=== PATIENT | male | born 1945 | race Asian ===

== ENCOUNTER 2018-02-12 16:04 | Emergency (ER) | payer OTHER ==
--- NOTE | 2018-02-12 17:30 | RAD REPORT ---
EXAM DESCRIPTION: RAD - Foot Right 3 View - 02/12/2018 5:01 pm CLINICAL HISTORY: Plantar puncture wound near the ball of the foot COMPARISON: None. FINDINGS: No fracture, dislocation or periosteal reaction. Minimal degenerative change at the first MTP joint No air or foreign body in the soft tissues. IMPRESSION: No acute bone finding. No foreign body.
--- NOTE | 2018-02-12 18:03 | EDPHYS ---
Physician Documentation [facility] Name: Kan Angulo Age: 72 yrs Sex: Male : 1945 Arrival Date: 02/12/2018 Time: 16:09 Bed 25 Private MD: Harjit Calero T ED Physician Brice Guadalupe HPI: 02/12 17:17 This 72 yrs old Male presents to ER via Ambulatory with complaints of STEPPED ON jmm NAIL. 17:17 The patient presents with puncture injury. Onset: The symptoms/episode began/occurred jm acutely, just prior to arrival. Patient states he stepped on a nail just prior to arrival. Injury occurred through a rubber boot. . 17:17 The complaints affect the right foot. jmm 17:17 Associated signs and symptoms: Pertinent positives: swelling, Pertinent negatives: jmm fever. Historical: - Allergies: 16:25 Aspirin; concerned about bleeding, not a true allergy; ch - Home Meds: 16:25 doxamine [Active]; blood pressure pills [Active]; Lipitor 10 mg Oral tab 1 tab once ch daily [Active]; - PMHx: 16:25 Hypertension; ch - PSHx: 16:25 Knee surgery; ch - Immunization history:: Adult Immunizations up to date. - Social history:: Smoking status: Patient/guardian denies using tobacco. - Ebola Screening: : Patient negative for fever greater than or equal to 101.5 degrees Fahrenheit, and additional compatible Ebola Virus Disease symptoms Patient denies exposure to infectious person Patient denies travel to an Ebola-affected area in the 21 days before illness onset No symptoms or risks identified at this time. ROS: 17:17 MS/extremity: Positive for pain, swelling. jmm 17:17 Constitutional: Negative for fever, chills, and weight loss. 17:17 Cardiovascular: Negative for chest pain, palpitations, and edema, Respiratory: Negative for shortness of breath, cough, wheezing, and pleuritic chest pain, Neuro: Negative for headache, weakness, numbness, tingling, and seizure. 17:17 Skin: Positive for swelling. Exam: 17:17 Head/Face: atraumatic. jmm 17:17 Constitutional: The patient appears in no acute distress, alert, awake. 17:17 Cardiovascular: Rate: normal. 17:17 Respiratory: the patient does not display signs of respiratory distress, Respirations: normal. 17:17 Skin: puncture noted to the ball of the right foot, no active bleeding appreciated. 17:17 Neuro: Orientation: is normal, Mentation: is normal, Memory: is normal. 17:17 Psych: Behavior/mood is pleasant, cooperative. [facility] Vital Signs: 16:25 BP 158 / 111; Pulse 84; Resp 15; Temp 98.3; Pulse Ox 96% on R/A; Weight 76.2 kg; Height ch 5 ft. 6 in. (167.64 cm); Pain 3/10; 18:11 BP 145 / 103; Pulse 83; Resp 16; Pulse Ox 96% on R/A; mb3 16:25 Body Mass Index 27.12 (76.20 kg, 167.64 cm) [facility]: 17:16 Patient medically screened. [facility] 17:17 Differential diagnosis:. Data reviewed: vital signs, nurses notes. [facility] 17:17 Data reviewed: radiologic studies, plain films. [facility] 18:05 ED course: Patient will prescribed antibiotic prophylaxis due to mechanism of injury. [facility] The patient is alert and non toxic in appearance in the ED. patient advised to risk of infection. patient understood and agrees with the plan of care. . 02/12 16:32 Order name: Foot Right 3 View XRAY; Complete Time: 18:01 [facility] Administered Medications: 17:54 Not Given (Patient Refused): Tetanus-Diphtheria Toxoid Adult 0.5 ml IM once mb3 Disposition: 02/12/18 18:02 Discharged to Home. Impression: Puncture wound without foreign body, right foot. - Condition is Stable. - Discharge Instructions: Puncture Wound. - Prescriptions for Levaquin 500 mg Oral Tablet - take 1 tablet by ORAL route once daily for 7 days; 7 tablet. - Medication Reconciliation Form, Thank You Letter, Antibiotic Education, Prescription Opioid Use form. - Follow up: Harjit Calero MD; When: 1 - 2 days; Reason: Re-evaluation by your physician. - Notes: Please follow up with your primiary care provider or orthopedics for further evaluation of your foot. Please return to the ER if you develop redness to the foot, increased pain, fever or any other concerning symptoms. Addendum: 02/20/2018 11:32 Co-signature as Attending Physician, Brice Guadalupe MD. g s Signatures: Dispatcher [employer] Zeynep Joshi, RN RN Les Pagan PA PA jmm Starr, Gregory, MD MD gs Barnett, Mark RN RN mb3 Corrections: (The following items were deleted from the chart) 02/12 18:17 18:02 02/12/2018 18:02 Discharged to Home. Impression: Puncture wound without foreign mb3 body, right foot. Condition is Stable. Forms are Medication Reconciliation Form, Thank You Letter, Antibiotic Education, Prescription Opioid Use. Follow up: Harjit Calero; When: 1 - 2 days; Reason: Re-evaluation by your physician. aaron
--- NOTE | 2018-02-12 18:03 | ER ---
Nurse's Notes [facility] Name: Kan Angulo Age: 72 yrs Sex: Male : 1945 Arrival Date: 02/12/2018 Time: 16:09 Bed 25 Private MD: Harjit Calero T Diagnosis: Puncture wound without foreign body, right foot Presentation: 02/12 16:22 Presenting complaint: Patient states: I stepped on a nail around 0900, now its swollen ch and hurts more. I washed it really well and soaked it when it happened. Tetnus is up to date. Transition of care: patient was not received from another setting of care. Onset of symptoms was February 12, 2018 at 09:00. Risk Assessment: Do you want to hurt yourself or someone else? Patient reports no desire to harm self or others. Initial Sepsis Screen: Does the patient meet any 2 criteria? No. Patient's initial sepsis screen is negative. Does the patient have a suspected source of infection? No. Patient's initial sepsis screen is negative. Care prior to arrival: None. 16:22 Method Of Arrival: Ambulatory 16:22 Acuity: VIDA 4 ch Triage Assessment: 16:25 General: Appears in no apparent distress. comfortable, Behavior is calm, cooperative, ch appropriate for age. Pain: Complains of pain in right foot Pain currently is 3 out of 10 on a pain scale. at worst was 6 out of 10 on a pain scale. Historical: - Allergies: 16:25 Aspirin; concerned about bleeding, not a true allergy; ch - Home Meds: 16:25 doxamine [Active]; blood pressure pills [Active]; Lipitor 10 mg Oral tab 1 tab once ch daily [Active]; - PMHx: 16:25 Hypertension; ch - PSHx: 16:25 Knee surgery; ch - Immunization history:: Adult Immunizations up to date. - Social history:: Smoking status: Patient/guardian denies using tobacco. - Ebola Screening: : Patient negative for fever greater than or equal to 101.5 degrees Fahrenheit, and additional compatible Ebola Virus Disease symptoms Patient denies exposure to infectious person Patient denies travel to an Ebola-affected area in the 21 days before illness onset No symptoms or risks identified at this time. Screenin:23 Abuse screen: Denies threats or abuse. Nutritional screening: No deficits noted. mb3 Tuberculosis screening: No symptoms or risk factors identified. Fall Risk None identified. Assessment: 17:30 General: Appears in no apparent distress. comfortable, well groomed, Behavior is calm, mb3 cooperative, appropriate for age. Pain: Complains of pain in ball of right foot Pain does not radiate. Neuro: No deficits noted. Cardiovascular: No deficits noted. Respiratory: No deficits noted. GI: No deficits noted. : No deficits noted. Musculoskeletal: No deficits noted. Vital Signs: 16:25 BP 158 / 111; Pulse 84; Resp 15; Temp 98.3; Pulse Ox 96% on R/A; Weight 76.2 kg; Height ch 5 ft. 6 in. (167.64 cm); Pain 3/10; 18:11 BP 145 / 103; Pulse 83; Resp 16; Pulse Ox 96% on R/A; mb3 16:25 Body Mass Index 27.12 (76.20 kg, 167.64 cm) ED Course: 16:09 Patient arrived in ED. sb2 16:10 Harjit Calero MD is Private Physician. sb2 16:23 Triage completed. ch 16:25 Arm band placed on left wrist. Patient placed in an exam room, on a stretcher. 16:30 Les Rudd PA is PHCP. [facility] 16:30 Brice Guadalupe MD is Attending Physician. [facility] 16:32 Humberto Das, BOB is Primary Nurse. mb3 17:01 X-ray completed. Portable x-ray completed in exam room. Patient tolerated procedure kc2 well. 17:01 Foot Right 3 View XRAY In Process Unspecified. EDMS 18:01 Harjit Calero MD is Referral Physician. [facility] 18:13 No provider procedures requiring assistance completed. Patient did not have IV access mb3 during this emergency room visit. 18:14 Patient has correct armband on for positive identification. mb3 Administered Medications: 17:54 Not Given (Patient Refused): Tetanus-Diphtheria Toxoid Adult 0.5 ml IM once mb3 Outcome: 18:02 Discharge ordered by . [facility] 18:12 Discharged to home ambulatory. mb3 18:12 Condition: stable 18:12 Discharge instructions given to patient, Instructed on discharge instructions, follow up and referral plans. medication usage, Demonstrated understanding of instructions, follow-up care, medications, Prescriptions given X 1. 18:17 Patient left the ED. mb3 Signatures: Dispatcher [employer] EDZeynep Daniel, RN RN Les Pagan PA PA jmm Carr, Kelsie kc2 Joy Gu2 Humberto Das RN RN mb3
== END 2018-02-12 18:17 | disposition home or self-care (01) ==
LOC: ER 16:04
DX: S91.331A Puncture wound without foreign body, right foot, initial encounter (principal); W45.0XXA Nail entering through skin, initial encounter; Y93.89 Activity, other specified; Y92.9 Unspecified place or not applicable; I10 Essential (primary) hypertension
CPT/HCPCS: 99283